=== PATIENT | female | born 1990 | race American Indian/Alaskan Native ===

== ENCOUNTER 2018-11-28 08:14 | Emergency (ER) | payer BC ==
[2018-11-28 08:54] VITALS: BP 115/68
[2018-11-28] MEDS ORDERED: BOOSTRIX IM ONE (09:19)
--- NOTE | 2018-11-28 09:22 | Emergency Department Report ---
ED Laceration HPI - HPI Chief Complaint: Laceration/Recheck/Suture Stated Complaint: CUTT ON L FINGER Time Seen by Provider: 11/28/18 09:08 Occurred When: Today Location: Upper Extremity Severity: moderate Tetanus Status: Not up to Date Laceration Symptoms: Yes Pain, No Foreign Body Sensation, No Numbness, No Weakness Other History: This is a 28 year-old female who presents with a laceration to left second finger. Patient states she was taken for breakfast this morning and accidentally cut finger about 2 hours ago. She is unsure of last tetanus vaccine. Patient states she was unable to control bleeding and came in for further evaluation. She denies numbness or tingling, swelling, weakness, or paresthesias. ED Review of Systems ROS: Stated complaint: CUTT ON L FINGER Other details as noted in HPI Constitutional: denies: chills, fever Respiratory: denies: cough, shortness of breath, wheezing Cardiovascular: denies: chest pain, palpitations Skin: lesions (laceration of second phalanx). denies: rash Neurological: denies: headache, weakness, paresthesias Psychiatric: denies: anxiety, depression ED Past Medical Hx - Past Medical History Previous Medical History?: No Hx Hypertension: No Hx Diabetes: No Hx Deep Vein Thrombosis: No Hx Renal Disease: No Hx Sickle Cell Disease: No Hx Seizures: No Hx Asthma: No Hx HIV: No - Surgical History Past Surgical History?: No - Social History Smoking Status: Never Smoker Substance Use Type: Alcohol - Medications Home Medications: Home Medications Medication Instructions Recorded Confirmed Last Taken Type Vit No.126/Iron/Folic 1 tab PO QDAY 09/12/14 09/12/14 09/10/14 08:00 History [Classic Tablet] one Naproxen [Naprosyn] 500 mg PO TID PRN #12 tablet 11/28/18 Unknown Rx Laceration Physical Exam - Exam General: Vital signs noted. No distress. Alert and acting appropriately. Wound Length (cm): 2 Laceration Location: Upper Extremity (2 cm laceration into the dermis of second proximal phalanx, bloody drainage, tenderness, no swelling or surrounding cellulitis, full range of motion, and neurologically intact) Laceration Exam: Yes Normal Distal CMS, No Foreign Body, No Exposed Tendon, Vessel, or Nerve, No Tendon Injury ED Course Vital Signs 11/28/18 08:50 Temperature 98.4 F Pulse Rate 70 Respiratory 16 Rate Blood Pressure 115/68 O2 Sat by Pulse 95 Oximetry - Laceration /Wound Repair Left Anterior Proximal Palm Finger Wound Location: upper extremity Wound Length (cm): 2 Wound's Depth, Shape: into muscle, linear Wound Explored: clean Irrigated w/ Saline (ccs): 5 Betadine Prep?: Yes Anesthesia: 1% Lidocaine Volume Anesthetic (ccs): 2 Wound Repaired With: sutures Suture Size/Type: 4:0 Number of Sutures: 2 Layer Closure?: No Sterile Dressing Applied?: Yes ED Medical Decision Making - Medical Decision Making This is a 28 y.o. female presents with laceration to proximal left 2nd digit since this morning. Patient examined by me. Patient is non-toxic appearing and stable. No signs of cellulitis surrounding the laceration. Laceration closed with 2 sutures, review procedure note. Patient given boosterix 0.5 mL IM. Start naproxen 500 mg by mouth 3 times a day when necessary for pain. Discharged home stable. Discussed suture care and given instructions. Patient agreed with plan. F/U with PCP. Critical care attestation.: If time is entered above; I have spent that time in minutes in the direct care of this critically ill patient, excluding procedure time. ED Disposition Clinical Impression: Laceration of finger of left hand Qualifiers: Encounter type: initial encounter Finger: index finger Damage to nail status: without damage Foreign body presence: without foreign body Qualified Code(s): S61.211A - Laceration without foreign body of left index finger without damage to nail, initial encounter Disposition: TO HOME OR SELFCARE Is pt being admited?: No Does the pt Need Aspirin: No Condition: Stable Instructions: Suture Care (ED), Laceration (ED) Additional Instructions: Keep wound dry and clean for 48 hours. Avoid putting to much tension on wound site. Prop arm up on pillows to decrease swelling. Follow up with Primary Care Provider in 2-3 days. Have sutures removed in 7-10 days by primary care provider or in ER. Return to ER if red, swollen, foul discharge, or fever. Prescriptions: Naproxen [Naprosyn] 500 mg PO TID PRN #12 tablet PRN Reason: Pain , Severe (7-10) Referrals: JESSICA QUACH MD [Referring] - 3-5 Days TANIA JOHNSON MD [Staff Physician] - 3-5 Days [facility] [place] [Outside] - 3-5 Days Forms: Work/School Release Form(ED) Time of Disposition: 10:15
== END 2018-11-28 11:08 | disposition home or self-care (01) ==
LOC: ED 08:14
DX: S61.211A Laceration without foreign body of left index finger without damage to nail, initial encounter (principal); W45.8XXA Other foreign body or object entering through skin, initial encounter; Y93.89 Activity, other specified; Y92.89 Other specified places as the place of occurrence of the external cause; Y99.8 Other external cause status
CPT/HCPCS: 90471; 90715

== ENCOUNTER 2019-05-12 03:04 | Emergency (ER) | payer BC ==
[2019-05-12 03:54] LABS: Basophils % (Auto) 0.2 % (0.0-1.8); Eosinophils % (Auto) 0.1 % (0.0-4.3); Hematocrit 35.3 % (30.3-42.9); Hemoglobin 12.3 gm/dl (10.1-14.3); Lymphocytes # (Auto) 0.7 K/mm3 (1.2-5.4); Lymphocytes % (Auto) 12.8 % (13.4-35.0); Mean Corpuscular HGB Conc 35 % (30-34); Mean Corpuscular Volume 82 fl (79-97); Monocytes # (Auto) 0.4 K/mm3 (0.0-0.8); Monocytes % (Auto) 6.6 % (0.0-7.3); Platelet Count 234 K/mm3 (140-440); Red Blood Count 4.29 M/mm3 (3.65-5.03); Red Cell Distribution Width 15.2 % (13.2-15.2)
[2019-05-12 04:52] LABS: Alanine Aminotransferase 9 units/L (7-56); Albumin 3.9 g/dL (3.9-5); BUN/Creatinine Ratio 8; Blood Urea Nitrogen 4 mg/dL (7-17); Calcium 9.3 mg/dL (8.4-10.2); Hemolysis Index 2
[2019-05-12] MEDS ORDERED: ZOFRAN IV ONE (07:40)
[2019-05-12] MEDS ORDERED: NACL 0.9% 1000 ML 1,000 ML IV ONE (07:40)
--- NOTE | 2019-05-12 07:44 | Emergency Department Report ---
Vomiting/Diarrhea - HPI Chief Complaint: Nausea/Vomiting/Diarrhea Stated Complaint: NV, CHEST PAIN, MILD SHAKING Time Seen by Provider: 05/12/19 07:22 Duration: 2 Days Severity: mild Nausea/Vomiting Severity: Mild Diarrhea Severity: None Pain Location: Other (no pain) Pain Severity: None (No) Symptoms: No Watery Diarrhea, No Bloody diarrhea, No Fever, No Able to Tolerate Fluids, No Recent Unusual Foods, No Recent Untreated Water, No Recent use of Antibiotics, No Family w/ Similar Symptoms, No Contacts w/ Similar Symptoms, No Rash, No Hematuria, No Recent URI Symptoms Other History: This is a 28-year-old female approximately the 15 weeks who presents to ED complaining of nausea vomiting that worsened yesterday. Patient states she had some Yi for the night. Patient states she is [employer] where she gets care in [facility]. She denies abdominal pain, vaginal bleeding, diarrhea. She said last menstrual period was 02/03/2019 ED Review of Systems ROS: Stated complaint: NV, CHEST PAIN, MILD SHAKING Other details as noted in HPI Comment: All other systems reviewed and negative ED Past Medical Hx - Past Medical History Hx Hypertension: No Hx Diabetes: No Hx Deep Vein Thrombosis: No Hx Renal Disease: No Hx Sickle Cell Disease: No Hx Seizures: No Hx Asthma: No Hx HIV: No - Surgical History Past Surgical History?: No - Social History Smoking Status: Never Smoker - Medications Home Medications: Home Medications Medication Instructions Recorded Confirmed Last Taken Type Vit No.126/Iron/Folic 1 tab PO QDAY 09/12/14 09/12/14 09/10/14 08:00 History [Classic Tablet] one Naproxen [Naprosyn] 500 mg PO TID PRN #12 tablet 11/28/18 Unknown Rx Doxylamine Succinate/Vit B6 2 tab PO QHS #40 tablet. 05/12/19 Unknown Rx [Chacorta Gallardo 10-10 mg Tablet] Vomiting Diarrhea Exam - Exam General: Vital signs noted. No distress. Alert and acting appropriately. HEENT: Yes Moist Mucous Membranes, No Pharyngeal Erythema, No Pharyngeal Exudates, No Rhinorrhea, No Conjuctival Injection, No Frontal Tenderness, No Maxillary Tenderness Neck: No Adenopathy, No Rigidity Lungs: Yes Clear Lung Sounds, Yes Good Air Exchange, No Wheezes, No Stridor, No Cough, No Nasal Flaring, No Retractions, No Use of Accessory Muscles Heart exam: Regular: Yes, Murmur: No, Tachycardia: No Abdomen: Tenderness: No, Peritoneal Signs: No, Distention: No, Hyperactive Bowel sounds: No Skin exam: Rash: No, Edema: No, Normal turgor: Yes Neurologic: Alert and oriented, no deficits. Musculoskeletal: Unremarkable. ED Course Vital Signs 05/12/19 03:13 Temperature 97.7 F Pulse Rate 101 H Respiratory 18 Rate Blood Pressure 133/86 O2 Sat by Pulse 95 Oximetry ED Medical Decision Making - Lab Data Result diagrams: 05/12/19 03:37 05/12/19 03:37 Laboratory Last Values WBC 5.8 K/mm3 (4.5-11.0) 05/12/19 03:37 RBC 4.29 M/mm3 (3.65-5.03) 05/12/19 03:37 Hgb 12.3 gm/dl (10.1-14.3) 05/12/19 03:37 Hct 35.3 % (30.3-42.9) 05/12/19 03:37 MCV 82 fl (79-97) 05/12/19 03:37 MCH 29 pg (28-32) 05/12/19 03:37 MCHC 35 % (30-34) H 05/12/19 03:37 RDW 15.2 % (13.2-15.2) 05/12/19 03:37 Plt Count 234 K/mm3 (140-440) 05/12/19 03:37 Lymph % (Auto) 12.8 % (13.4-35.0) L 05/12/19 03:37 [place] % (Auto) 6.6 % (0.0-7.3) 05/12/19 03:37 Eos % (Auto) 0.1 % (0.0-4.3) 05/12/19 03:37 Baso % (Auto) 0.2 % (0.0-1.8) 05/12/19 03:37 Lymph # 0.7 K/mm3 (1.2-5.4) L 05/12/19 03:37 [place] # 0.4 K/mm3 (0.0-0.8) 05/12/19 03:37 Eos # 0.0 K/mm3 (0.0-0.4) 05/12/19 03:37 Baso # 0.0 K/mm3 (0.0-0.1) 05/12/19 03:37 Seg Neutrophils % 80.3 % (40.0-70.0) H 05/12/19 03:37 Seg Neutrophils # 4.7 K/mm3 (1.8-7.7) 05/12/19 03:37 Sodium 133 mmol/L (137-145) L 05/12/19 03:37 Potassium 4.0 mmol/L (3.6-5.0) 05/12/19 03:37 Chloride 96.3 mmol/L (98-107) L 05/12/19 03:37 Carbon Dioxide 23 mmol/L (22-30) 05/12/19 03:37 18 mmol/L 05/12/19 03:37 BUN 4 mg/dL (7-17) L 05/12/19 03:37 0.5 mg/dL (0.7-1.2) L 05/12/19 03:37 Estimated GFR > 60 ml/min 05/12/19 03:37 8 % 05/12/19 03:37 Glucose 87 mg/dL (65-100) 05/12/19 03:37 Calcium 9.3 mg/dL (8.4-10.2) 05/12/19 03:37 0.40 mg/dL (0.1-1.2) 05/12/19 03:37 AST 11 units/L (5-40) 05/12/19 03:37 ALT 9 units/L (7-56) 05/12/19 03:37 70 units/L (35-129) 05/12/19 03:37 8.3 g/dL (6.3-8.2) H 05/12/19 03:37 3.9 g/dL (3.9-5) 05/12/19 03:37 0.9 % 05/12/19 03:37 HCG, Quant 97175 mIU/mL (0-4) H 05/12/19 03:37 - Medical Decision Making 28-year-old female who presents for nausea and vomiting in All labs are within normal limits. Patient received 1 L of fluids and Zofran ODT. Patient reports feeling much better. CBC within normal limits BMP shows mild dehydration. Discussed with the patient to follow up with her [employer] in 2-3 days. Patient agrees and states that she will follow up. Vital signs are normal she had no acute or respiratory distress. Critical care attestation.: If time is entered above; I have spent that time in minutes in the direct care of this critically ill patient, excluding procedure time. ED Disposition Clinical Impression: Nausea and vomiting during Disposition: TO HOME OR SELFCARE Is pt being admited?: No Does the pt Need Aspirin: No Condition: Stable Instructions: Morning Sickness (ED), (ED) Additional Instructions: Make sure to follow up with the [employer] as discussed. Take all your medications as you've been prescribed. If you have any worsening symptoms or develop new symptoms please return to ED immediately. Prescriptions: Doxylamine Succinate/Vit B6 [Chacorta Gallardo 10-10 mg Tablet] 2 tab PO QHS #40 tablet. Referrals: ERICA [place] MD KAELYN [Primary Care Provider] - 3-5 Days Forms: Work/School Release Form(ED) Time of Disposition: 08:31
[2019-05-12 09:02] VITALS: BP 109/63
== END 2019-05-12 09:03 | disposition home or self-care (01) ==
LOC: ED 03:04
DX: O21.9 Vomiting of pregnancy, unspecified (principal); Z3A.15 15 weeks gestation of pregnancy
CPT/HCPCS: 36415; 80053; 84702; 85025; 93005; 93010; 96374; 99284; J2405; J7030

== ENCOUNTER 2019-06-25 08:57 | Emergency (ER) | payer BC ==
[2019-06-25 09:05] VITALS: BP 133/69
[2019-06-25] MEDS ORDERED: SODIUM CHLORIDE 0.9% 1000 ML 1,000 ML IV ONE (09:25)
[2019-06-25] MEDS ORDERED: DICYCLOMINE 20 MG/2 ML INJ IM ONE (09:25)
[2019-06-25] MEDS ORDERED: ONDANSETRON 4 MG/2 ML INJ IV ONE (09:25)
[2019-06-25] MEDS ORDERED: FAMOTIDINE 20 MG/2 ML INJ IV ONE (09:25)
[2019-06-25 09:33] LABS: Basophils % (Auto) 0.4 % (0.0-1.8); Eosinophils % (Auto) 0.5 % (0.0-4.3); Hematocrit 34.1 % (30.3-42.9); Hemoglobin 11.7 gm/dl (10.1-14.3); Mean Corpuscular HGB Conc 34 % (30-34); Mean Corpuscular Volume 84 fl (79-97); Monocytes # (Auto) 0.4 K/mm3 (0.0-0.8); Monocytes % (Auto) 6.2 % (0.0-7.3); Platelet Count 232 K/mm3 (140-440); Red Blood Count 4.06 M/mm3 (3.65-5.03); Red Cell Distribution Width 14.9 % (13.2-15.2)
[2019-06-25 09:46] LABS: Alanine Aminotransferase 11 units/L (7-56); Albumin 3.8 g/dL (3.9-5); BUN/Creatinine Ratio 10; Blood Urea Nitrogen 4 mg/dL (7-17); Calcium 9.1 mg/dL (8.4-10.2); Hemolysis Index 0
--- NOTE | 2019-06-25 10:02 | Emergency Department Report ---
ED N/V/D HPI - General Chief complaint: Nausea/Vomiting/Diarrhea Stated complaint: MIRGAINE/WEAK/SORE THROAT Time Seen by Provider: 06/25/19 09:20 Source: patient Mode of arrival: Ambulatory Limitations: No Limitations - History of Present Illness Initial comments: Pt is 21 weeks MD complaint: nausea, vomiting, abdominal pain -: days(s) (3) Description of Vomiting: food contents, watery Associated Abdominal Pain: Yes Location: diffuse Radiation: none Severity: mild Pain Scale: 4 Quality: cramping, aching Consistency: constant Improves with: none Worsens with: eating, other (drinking) Associated Symptoms: nausea/vomiting. denies: myalgias, chest pain, cough, diaphoresis, fever/chills, headaches, loss of appetite, malaise, rash, dysuria, shortness of breath, syncope, weakness - Related Data Home Medications Medication Instructions Recorded Confirmed Last Taken Vit No.126/Iron/Folic 1 tab PO QDAY 09/12/14 09/12/14 09/10/14 08:00 [Classic Tablet] one Previous Rx's Medication Instructions Recorded Last Taken Type Naproxen [Naprosyn] 500 mg PO TID PRN #12 tablet 11/28/18 Unknown Rx Doxylamine Succinate/Vit B6 2 tab PO QHS #40 tablet. 05/12/19 Unknown Rx [Chacorta Gallardo 10-10 mg Tablet] Metoclopramide [Reglan] 10 mg PO TID PRN #12 tab 06/25/19 Unknown Rx Nitrofurantoin [place]/M-Cryst 100 mg PO Q12HR #14 capsule 06/25/19 Unknown Rx [Macrobid CAP] Allergies Allergy/AdvReac Type Severity Reaction Status Date / Time No Known Allergies Allergy Unverified 09/11/14 23:20 ED Review of Systems ROS: Stated complaint: MIRGAINE/WEAK/SORE THROAT Other details as noted in HPI Comment: All other systems reviewed and negative ED Past Medical Hx - Past Medical History Hx Hypertension: No Hx Diabetes: No Hx Deep Vein Thrombosis: No Hx Renal Disease: No Hx Sickle Cell Disease: No Hx Seizures: No Hx Asthma: No Hx HIV: No - Surgical History Past Surgical History?: No - Social History Smoking Status: Never Smoker - Medications Home Medications: Home Medications Medication Instructions Recorded Confirmed Last Taken Type Vit No.126/Iron/Folic 1 tab PO QDAY 09/12/14 09/12/14 09/10/14 08:00 History [Classic Tablet] one Naproxen [Naprosyn] 500 mg PO TID PRN #12 tablet 11/28/18 Unknown Rx Doxylamine Succinate/Vit B6 2 tab PO QHS #40 tablet. 05/12/19 Unknown Rx [Diclegis Dr 10-10 mg Tablet] Metoclopramide [Reglan] 10 mg PO TID PRN #12 tab 06/25/19 Unknown Rx Nitrofurantoin [place]/M-Cryst 100 mg PO Q12HR #14 capsule 06/25/19 Unknown Rx [Macrobid CAP] ED Physical Exam - General Limitations: No Limitations General appearance: alert, in no apparent distress - Head Head exam: Present: atraumatic, normocephalic - Eye Eye exam: Present: normal appearance, PERRL, EOMI - ENT ENT exam: Present: mucous membranes moist - Neck Neck exam: Present: normal inspection - Respiratory Respiratory exam: Present: normal lung sounds bilaterally. Absent: respiratory distress, wheezes, rales, rhonchi, stridor - Cardiovascular Cardiovascular Exam: Present: regular rate, normal rhythm, normal heart sounds. Absent: systolic murmur, diastolic murmur, rubs, gallop - GI/Abdominal GI/Abdominal exam: Present: soft, normal bowel sounds. Absent: distended, tenderness, guarding, rebound, rigid - Extremities Exam Extremities exam: Present: normal inspection - Back Exam Back exam: Present: normal inspection - Neurological Exam Neurological exam: Present: alert, oriented X3 - Psychiatric Psychiatric exam: Present: normal affect, normal mood - Skin Skin exam: Present: warm, dry, intact, normal color. Absent: rash ED Course Vital Signs 06/25/19 06/25/19 09:00 09:35 Temperature 98.3 F Pulse Rate 78 Respiratory 14 17 Rate Blood Pressure 133/69 [Left] O2 Sat by Pulse 98 Oximetry ED Medical Decision Making - Lab Data Result diagrams: 06/25/19 09:19 06/25/19 09:19 Lab Results 06/25/19 06/25/19 Range/Units 09:19 09:19 WBC 5.8 (4.5-11.0) K/mm3 RBC 4.06 (3.65-5.03) M/mm3 Hgb 11.7 (10.1-14.3) gm/dl Hct 34.1 (30.3-42.9) % MCV 84 (79-97) fl MCH 29 (28-32) pg MCHC 34 (30-34) % RDW 14.9 (13.2-15.2) % Plt Count 232 (140-440) K/mm3 Lymph % (Auto) 18.0 (13.4-35.0) % [place] % (Auto) 6.2 (0.0-7.3) % Eos % (Auto) 0.5 (0.0-4.3) % Baso % (Auto) 0.4 (0.0-1.8) % Lymph # 1.0 L (1.2-5.4) K/mm3 [place] # 0.4 (0.0-0.8) K/mm3 Eos # 0.0 (0.0-0.4) K/mm3 Baso # 0.0 (0.0-0.1) K/mm3 Seg Neutrophils % 74.9 H (40.0-70.0) % Seg Neutrophils # 4.4 (1.8-7.7) K/mm3 Sodium 135 L (137-145) mmol/L Potassium 3.8 (3.6-5.0) mmol/L Chloride 98.7 (98-107) mmol/L Carbon Dioxide 21 L (22-30) mmol/L Anion Gap 19 mmol/L BUN 4 L (7-17) mg/dL Creatinine 0.4 L (0.7-1.2) mg/dL Estimated GFR > 60 ml/min BUN/Creatinine Ratio 10 % Glucose 81 (65-100) mg/dL Calcium 9.1 (8.4-10.2) mg/dL Total Bilirubin 0.60 (0.1-1.2) mg/dL AST 17 (5-40) units/L ALT 11 (7-56) units/L Alkaline Phosphatase 92 (35-129) units/L Total Protein 8.0 (6.3-8.2) g/dL Albumin 3.8 L (3.9-5) g/dL Albumin/Globulin Ratio 0.9 % Lab Results 06/25/19 06/25/19 06/25/19 Range/Units 09:19 09:19 Unknown WBC 5.8 (4.5-11.0) K/mm3 RBC 4.06 (3.65-5.03) M/mm3 Hgb 11.7 (10.1-14.3) gm/dl Hct 34.1 (30.3-42.9) % MCV 84 (79-97) fl MCH 29 (28-32) pg MCHC 34 (30-34) % RDW 14.9 (13.2-15.2) % Plt Count 232 (140-440) K/mm3 Lymph % (Auto) 18.0 (13.4-35.0) % [place] % (Auto) 6.2 (0.0-7.3) % Eos % (Auto) 0.5 (0.0-4.3) % Baso % (Auto) 0.4 (0.0-1.8) % Lymph # 1.0 L (1.2-5.4) K/mm3 [place] # 0.4 (0.0-0.8) K/mm3 Eos # 0.0 (0.0-0.4) K/mm3 Baso # 0.0 (0.0-0.1) K/mm3 Seg Neutrophils % 74.9 H (40.0-70.0) % Seg Neutrophils # 4.4 (1.8-7.7) K/mm3 Sodium 135 L (137-145) mmol/L Potassium 3.8 (3.6-5.0) mmol/L Chloride 98.7 (98-107) mmol/L Carbon Dioxide 21 L (22-30) mmol/L Anion Gap 19 mmol/L BUN 4 L (7-17) mg/dL Creatinine 0.4 L (0.7-1.2) mg/dL Estimated GFR > 60 ml/min BUN/Creatinine Ratio 10 % Glucose 81 (65-100) mg/dL Calcium 9.1 (8.4-10.2) mg/dL Total Bilirubin 0.60 (0.1-1.2) mg/dL AST 17 (5-40) units/L ALT 11 (7-56) units/L Alkaline Phosphatase 92 (35-129) units/L Total Protein 8.0 (6.3-8.2) g/dL Albumin 3.8 L (3.9-5) g/dL Albumin/Globulin Ratio 0.9 % Urine Color [place] (Yellow) Urine Turbidity Cloudy (Clear) Urine pH 6.0 (5.0-7.0) Ur Specific [place] 1.031 H (1.003-1.030) Urine Protein 100 mg/dl (Negative) mg/dL Urine Glucose (UA) Neg (Negative) mg/dL Urine Ketones 80 (Negative) mg/dL Urine Blood Neg (Negative) Urine Nitrite Neg (Negative) Ur Reducing Substances Not Reportable Urine Bilirubin Sm (Negative) Urine Ictotest Positive (Negative) Urine Urobilinogen 4.0 (<2.0) mg/dL Ur Leukocyte Esterase Mod (Negative) Urine WBC (Auto) 37.0 H (0.0-6.0) /HPF Urine RBC (Auto) 10.0 (0.0-6.0) /HPF U Epithel Cells (Auto) 67.0 H (0-13.0) /HPF Urine Bacteria (Auto) 1+ (Negative) /HPF Urine Mucus 3+ /HPF Urine HCG, Qual Positive A (Negative) - Medical Decision Making Patient was hydrated and given antiemetics. Patient did have a large amount of ketones in the urine area was her second liter fluid had D5 added to help clear her ketones. Patient is feeling better and had no further incidences of nausea vomiting here in the emergency department. Patient be discharged home. Critical care attestation.: If time is entered above; I have spent that time in minutes in the direct care of this critically ill patient, excluding procedure time. ED Disposition Clinical Impression: Moderate dehydration, Ketonuria, UTI in Acute gastritis Qualifiers: Gastritis type: unspecified gastritis Gastritis bleeding: without bleeding Qualified Code(s): K29.00 - Acute gastritis without bleeding Nausea and vomiting Qualifiers: Vomiting type: unspecified Vomiting Intractability: non-intractable Qualified Code(s): R11.2 - Nausea with vomiting, unspecified Disposition: DC-01 TO HOME OR SELFCARE Is pt being admited?: No Does the pt Need Aspirin: No Condition: Stable Instructions: Acute Nausea and Vomiting (ED), Urinary Tract Infection in Women (ED) Referrals: PRIMARY CARE, [Referring] - 3-5 Days Time of Disposition: 12:09
[2019-06-25 10:59] LABS: HCG Qualitative,Urine Positive (Negative)
[2019-06-25 11:04] LABS: Bacteria,Urine 1+ /HPF (Negative); Bilirubin,Urine SM (Negative); Blood,Urine NEG (Negative); Color,Urine Amber (Yellow); Mucus,Urine 3+ /HPF
[2019-06-25 11:18] LABS: Ictotest,Urine Positive (Negative)
[2019-06-25] MEDS ORDERED: D5W/0.9% NACL 1,000 ML IV SCH (12:00)
== END 2019-06-25 12:54 | disposition home or self-care (01) ==
LOC: ED 08:57
DX: O26.892 Other specified pregnancy related conditions, second trimester (principal); O99.612 Diseases of the digestive system complicating pregnancy, second trimester; K92.89 Other specified diseases of the digestive system; O23.42 Unspecified infection of urinary tract in pregnancy, second trimester; O99.282 Endocrine, nutritional and metabolic diseases complicating pregnancy, second trimester; E86.0 Dehydration; Z3A.21 21 weeks gestation of pregnancy
CPT/HCPCS: 36415; 80053; 81001; 81025; 85025; 87086; 96361; 96372; 96374; 96375; 99283; J0500; J2405; J7030; J7042

== ENCOUNTER 2019-09-01 17:25 | Outpatient (CLI) | payer BC, OTHER ==
[2019-09-01] MEDS ORDERED: LACTATED RINGERS 1,000 ML IV SCH (20:00)
[2019-09-01] MEDS ORDERED: ONDANSETRON 4 MG/2 ML INJ IV PRN (22:07)
[2019-09-01] MEDS ORDERED: D5W/LACTATED RINGERS 1,000 ML IV SCH ×2 (23:00)
[2019-09-01 23:06] LABS: Basophils % (Auto) 0.5 % (0.0-1.8); Eosinophils % (Auto) 0.1 % (0.0-4.3); Hemoglobin 11.5 gm/dl (10.1-14.3); Mean Corpuscular HGB Conc 33 % (30-34); Mean Corpuscular Volume 84 fl (79-97); Monocytes # (Auto) 0.5 K/mm3 (0.0-0.8); Monocytes % (Auto) 6.1 % (0.0-7.3); Platelet Count 257 K/mm3 (140-440); Red Blood Count 4.15 M/mm3 (3.65-5.03); Red Cell Distribution Width 14.6 % (13.2-15.2)
[2019-09-01 23:11] LABS: Bacteria,Urine 1+ /HPF (Negative); Bilirubin,Urine NEG (Negative); Blood,Urine NEG (Negative); Color,Urine Yellow (Yellow); Mucus,Urine FEW /HPF
[2019-09-01 23:22] LABS: Amphetamine Screen,Urine PRESUMPTIVE NEGATIVE; Benzodiazepines Screen,Urine PRESUMPTIVE NEGATIVE; Cannabinoid Screen,Urine PRESUMPTIVE NEGATIVE; Cocaine Screen,Urine PRESUMPTIVE NEGATIVE; Methadone Screen,Urine PRESUMPTIVE NEGATIVE; Opiate Screen,Urine PRESUMPTIVE NEGATIVE
[2019-09-01 23:31] LABS: Alanine Aminotransferase 8 units/L (7-56); Albumin 3.4 g/dL (3.9-5); BUN/Creatinine Ratio 10; Blood Urea Nitrogen 4 mg/dL (7-17); Calcium 9.1 mg/dL (8.4-10.2); Hemolysis Index 6
[2019-09-02 00:02] VITALS: BP 105/69
== END 2019-09-02 00:20 | disposition home or self-care (01) ==
LOC: TRG 17:25
PROVIDERS: ATTEND Obstetrics & Gynecology
DX: O21.2 Late vomiting of pregnancy (principal); O26.893 Other specified pregnancy related conditions, third trimester; R10.2 Pelvic and perineal pain; R10.30 Lower abdominal pain, unspecified; O47.03 False labor before 37 completed weeks of gestation, third trimester; Z3A.30 30 weeks gestation of pregnancy
CPT/HCPCS: 36415; 59025; 80053; 80307; 81001; 84443; 85025; 87086; 96360; 96361; J7120; J7121; 96372; 96374; J2405

== ENCOUNTER 2019-09-03 12:04 | Outpatient (CLI) | payer BC, OTHER ==
[2019-09-03] MEDS ORDERED: BETAMET ACET/BETAMET NA PH 6 MG/ML INJ 5 ML MDV IM SCH (13:00)
== END 2019-09-03 13:17 | disposition home or self-care (01) ==
LOC: TRG 12:04
PROVIDERS: ATTEND Obstetrics & Gynecology
DX: O47.03 False labor before 37 completed weeks of gestation, third trimester (principal); Z3A.31 31 weeks gestation of pregnancy
CPT/HCPCS: 96372; J0702

== ENCOUNTER 2019-09-04 12:52 | Outpatient (CLI) | payer BC, OTHER ==
[2019-09-04 13:11] VITALS: BP 108/68
[2019-09-04] MEDS ORDERED: BETAMET ACET/BETAMET NA PH 6 MG/ML INJ 5 ML MDV IM ONE ×2 (13:38→13:48)
== END 2019-09-04 14:06 | disposition home or self-care (01) ==
LOC: TRG 12:52
PROVIDERS: ATTEND Obstetrics & Gynecology
DX: O47.03 False labor before 37 completed weeks of gestation, third trimester (principal); Z3A.31 31 weeks gestation of pregnancy
CPT/HCPCS: J0702

== ENCOUNTER 2019-09-08 01:00 | Outpatient (CLI) | payer BC, OTHER ==
[2019-09-08 01:21] VITALS: BP 114/66
[2019-09-08] MEDS ORDERED: LACTATED RINGERS 1,000 ML IV ONE (02:21)
[2019-09-08] MEDS ORDERED: TERBUTALINE 1 MG/1 ML INJ SUB-Q SCH ×2 (04:21→05:00)
[2019-09-08 07:41] LABS: Bilirubin,Urine NEG (Negative); Color,Urine Yellow (Yellow)
[2019-09-08 07:42] LABS: Blood,Urine NEG (Negative); Protein,Urine <15 mg/dL mg/dL (Negative); Urobilinogen,Urine < 2.0 mg/dL (<2.0)
[2019-09-08 07:44] LABS: Mucus,Urine Few /HPF
== END 2019-09-08 08:50 | disposition home or self-care (01) ==
LOC: TRG 01:00
PROVIDERS: ATTEND Obstetrics & Gynecology
DX: O62.9 Abnormality of forces of labor, unspecified (principal); Z3A.31 31 weeks gestation of pregnancy
CPT/HCPCS: 81001; 96360; 96372; J3105; J7120

== ENCOUNTER 2019-09-19 03:44 | Outpatient (CLI) | payer BC, OTHER ==
[2019-09-19] MEDS ORDERED: LACTATED RINGERS 1,000 ML ONE (05:29)
[2019-09-19 05:37] VITALS: BP 120/69
[2019-09-19] MEDS ORDERED: LACTATED RINGERS 1,000 ML IV ONE (06:36)
[2019-09-19 08:28] LABS: Bacteria,Urine 1+ /HPF (Negative); Bilirubin,Urine NEG (Negative); Blood,Urine NEG (Negative); Color,Urine Amber (Yellow); Mucus,Urine 3+ /HPF; Urobilinogen,Urine < 2.0 mg/dL (<2.0)
[2019-09-19] MEDS ORDERED: ONDANSETRON 4 MG ODT TAB PO PRN (10:33)
== END 2019-09-19 10:48 | disposition home or self-care (01) ==
LOC: TRG 03:44
PROVIDERS: ATTEND Obstetrics & Gynecology
DX: O62.9 Abnormality of forces of labor, unspecified (principal); O21.2 Late vomiting of pregnancy; Z3A.33 33 weeks gestation of pregnancy; O26.893 Other specified pregnancy related conditions, third trimester; R20.0 Anesthesia of skin
CPT/HCPCS: 81001; 87086; J7120; 96360; Q0162

== ENCOUNTER 2019-10-01 21:27 | Outpatient (CLI) | payer BC, OTHER ==
[2019-10-01] MEDS ORDERED: LACTATED RINGERS 1,000 ML IV ONE (22:14)
[2019-10-01 23:37] LABS: Bilirubin,Urine NEG (Negative); Blood,Urine NEG (Negative); Color,Urine Amber (Yellow); Mucus,Urine FEW /HPF; Urobilinogen,Urine < 2.0 mg/dL (<2.0)
[2019-10-02] MEDS ORDERED: ONDANSETRON 4 MG ODT TAB PO PRN (01:05)
[2019-10-02 01:08] VITALS: BP 137/89
== END 2019-10-02 01:21 | disposition home or self-care (01) ==
LOC: TRG 21:27
PROVIDERS: ATTEND Obstetrics & Gynecology
DX: O21.2 Late vomiting of pregnancy (principal); O26.893 Other specified pregnancy related conditions, third trimester; M54.5 Low back pain; R10.2 Pelvic and perineal pain; R51 Headache; O47.02 False labor before 37 completed weeks of gestation, second trimester; Z3A.35 35 weeks gestation of pregnancy
CPT/HCPCS: 59025; 81001; 96360; J7120

== ENCOUNTER 2019-10-03 19:57 | Emergency (ER) | payer BC, OTHER ==
[2019-10-03 15:38] LABS: Basophils % (Auto) 0.6 % (0.0-1.8); Eosinophils % (Auto) 0.2 % (0.0-4.3); Hematocrit 33.8 % (30.3-42.9); Lymphocytes # (Auto) 1.2 K/mm3 (1.2-5.4); Lymphocytes % (Auto) 24.6 % (13.4-35.0); Mean Corpuscular HGB Conc 33 % (30-34); Mean Corpuscular Volume 80 fl (79-97); Monocytes # (Auto) 0.5 K/mm3 (0.0-0.8); Monocytes % (Auto) 9.4 % (0.0-7.3); Platelet Count 291 K/mm3 (140-440); Red Cell Distribution Width 15.7 % (13.2-15.2)
[2019-10-03 16:00] LABS: Alanine Aminotransferase 13 units/L (7-56); Albumin 3.5 g/dL (3.9-5); BUN/Creatinine Ratio 8; Blood Urea Nitrogen 4 mg/dL (7-17); Calcium 9.3 mg/dL (8.4-10.2); Hemolysis Index 4; Uric Acid 7.2 mg/dL (3.5-7.6)
[2019-10-03 17:02] LABS: Amphetamine Screen,Urine PRESUMPTIVE NEGATIVE; Benzodiazepines Screen,Urine PRESUMPTIVE NEGATIVE; Cannabinoid Screen,Urine PRESUMPTIVE NEGATIVE; Cocaine Screen,Urine PRESUMPTIVE NEGATIVE; Methadone Screen,Urine PRESUMPTIVE NEGATIVE; Opiate Screen,Urine PRESUMPTIVE NEGATIVE
[2019-10-03 17:06] LABS: Bilirubin,Urine MOD (Negative); Blood,Urine SM (Negative); Color,Urine Amber (Yellow); Mucus,Urine 3+ /HPF
[2019-10-03 17:12] LABS: Ictotest,Urine Positive (Negative)
--- NOTE | 2019-10-03 18:37 | Ultrasound Report ---
ULTRASOUND ABDOMEN, LIMITED (RIGHT UPPER QUADRANT) INDICATION / CLINICAL INFORMATION: Abdominal pain, vomiting. COMPARISON: None available. FINDINGS: PANCREAS: Visualized portion shows no significant abnormality. LIVER: No significant abnormality. GALLBLADDER: No significant abnormality. No gallstones or gallbladder wall thickening identified. BILE DUCTS: No significant abnormality. Common bile duct measures 3 mm. FREE FLUID: None. ADDITIONAL FINDINGS: None. IMPRESSION: 1. No significant sonographic abnormality of the right upper quadrant. Signer Name: Mar Martinez MD Signed: 10/03/2019 6:32 PM Workstation Name: [id number]
--- NOTE | 2019-10-03 18:55 | Ultrasound Report ---
ULTRASOUND OBSTETRIC LIMITED ULTRASOUND BIOPHYSICAL PROFILE INDICATION / CLINICAL INFORMATION: KAT, check placenta. COMPARISON: None available. FINDINGS: BREATHING MOVEMENT = 2 GROSS BODY MOVEMENT = 2 TONE = 2 QUALITATIVE AMNIOTIC FLUID VOLUME = 2 TOTAL BIOPHYSICAL SCORE = 8/8 AMNIOTIC FLUID INDEX (cm) = 10.4 PRESENTATION: Cephalic. HEART RATE (beats per minute): 144 ADDITIONAL FINDINGS: Placenta is located anteriorly with a grade of 2. No evidence of abruption. IMPRESSION: 1. Biophysical Score = 8/8 2. Single viable IUP in a cephalic presentation. 3. Placenta is located anteriorly with a grade of 2. Signer Name: Mar Martinez MD Signed: 10/03/2019 6:51 PM Workstation Name: [id number]
[~2019-10-03 19:57] MED LIST: LACTATED RINGERS 500 ML IV ONE
[2019-10-03] MEDS ORDERED: FAMOTIDINE 20 MG/2 ML INJ IV ONE ×2 (22:37→23:04)
[2019-10-03] MEDS ORDERED: METOCLOPRAMIDE 10 MG/2 ML INJ IV ONE (22:37)
[2019-10-03] MEDS ORDERED: D5W/0.9% NACL 1,000 ML IV SCH (23:00)
[2019-10-03] MEDS ORDERED: METOCLOPRAMIDE 10 MG/2 ML INJ ONE (23:04)
--- NOTE | 2019-10-03 23:18 | Emergency Department Report ---
ED N/V/D HPI - General Chief complaint: Nausea/Vomiting/Diarrhea Time Seen by Provider: 10/03/19 22:24 Source: patient Mode of arrival: Stretcher Limitations: No Limitations - History of Present Illness Initial comments: Patient is a 29-year-old Female who is 35 weeks who is complaining of 5 days of nausea and vomiting. Patient states after several days of nausea vomi ting patient is having some chest and upper abdominal pain as well. Patient states she has some achiness in the bilateral legs and arms. Patient states she has a mild cough that is nonproductive. She denies fever or sore throat headache or neck stiffness. Patient was seen at labor and delivery and was cleared for being in labor. Bilateral physical score for the fetus is 8 out of a. Heart rate 144. No evidence of abruption. - Related Data Home Medications Medication Instructions Recorded Confirmed Last Taken Vit No.126/Iron/Folic 1 tab PO QDAY 09/12/14 10/03/19 09/10/14 08:00 [Classic Tablet] one Previous Rx's Medication Instructions Recorded Last Taken Type Famotidine [Pepcid] 40 mg PO QHS #10 tablet 10/04/19 Unknown Rx Metoclopramide [Reglan] 10 mg PO TID PRN #12 tab 10/04/19 Unknown Rx Allergies Allergy/AdvReac Type Severity Reaction Status Date / Time No Known Allergies Allergy Verified 10/03/19 14:50 ED Review of Systems ROS: Stated complaint: Other details as noted in HPI Comment: All other systems reviewed and negative ED Past Medical Hx - Past Medical History Previous Medical History?: No Hx Hypertension: No Hx Diabetes: No Hx Deep Vein Thrombosis: No Hx Renal Disease: No Hx Sickle Cell Disease: No Hx Seizures: No Hx Asthma: No Hx HIV: No - Surgical History Past Surgical History?: No - Social History Smoking Status: Never Smoker Substance Use Type: None - Medications Home Medications: Home Medications Medication Instructions Recorded Confirmed Last Taken Type Vit No.126/Iron/Folic 1 tab PO QDAY 09/12/14 10/03/19 09/10/14 08:00 History [Classic Tablet] one Famotidine [Pepcid] 40 mg PO QHS #10 tablet 10/04/19 Unknown Rx Metoclopramide [Reglan] 10 mg PO TID PRN #12 tab 10/04/19 Unknown Rx ED Physical Exam - General Limitations: No Limitations General appearance: alert, in no apparent distress - Head Head exam: Present: atraumatic, normocephalic - Eye Eye exam: Present: normal appearance. Absent: PERRL, EOMI - ENT ENT exam: Present: mucous membranes moist - Neck Neck exam: Present: normal inspection - Respiratory Respiratory exam: Present: normal lung sounds bilaterally. Absent: respiratory distress, wheezes, rales, rhonchi - Cardiovascular Cardiovascular Exam: Present: regular rate, normal rhythm, normal heart sounds. Absent: systolic murmur, diastolic murmur, rubs, gallop - GI/Abdominal GI/Abdominal exam: Present: soft, distended (gravid uterus), normal bowel sounds. Absent: tenderness, guarding, rebound - Extremities Exam Extremities exam: Present: normal inspection - Back Exam Back exam: Present: normal inspection - Neurological Exam Neurological exam: Present: alert, oriented X3 - Psychiatric Psychiatric exam: Present: normal affect, normal mood - Skin Skin exam: Present: warm, dry, intact, normal color. Absent: rash ED Course Vital Signs 10/03/19 10/03/19 10/03/19 15:00 15:05 15:06 Temperature 98.5 F Pulse Rate 127 H 91 H Respiratory 18 Rate Blood Pressure Blood Pressure [Right] O2 Sat by Pulse 97 96 Oximetry 10/03/19 10/03/19 10/03/19 15:08 15:10 15:11 Temperature Pulse Rate 102 H 93 H 99 H Respiratory Rate Blood Pressure 130/84 Blood Pressure [Right] O2 Sat by Pulse 94 95 Oximetry 10/03/19 10/03/19 10/03/19 15:27 15:32 15:33 Temperature Pulse Rate 89 76 90 Respiratory Rate Blood Pressure 123/85 Blood Pressure [Right] O2 Sat by Pulse 96 95 Oximetry 10/03/19 10/03/19 10/03/19 15:37 15:42 15:47 Temperature Pulse Rate 85 74 85 Respiratory Rate Blood Pressure Blood Pressure [Right] O2 Sat by Pulse 96 97 97 Oximetry 10/03/19 10/03/19 10/03/19 15:48 15:52 15:57 Temperature Pulse Rate 72 78 73 Respiratory Rate Blood Pressure 116/75 Blood Pressure [Right] O2 Sat by Pulse 98 98 Oximetry 10/03/19 10/03/19 10/03/19 16:02 16:03 16:33 Temperature Pulse Rate 75 79 70 Respiratory Rate Blood Pressure 128/81 Blood Pressure [Right] O2 Sat by Pulse 99 97 Oximetry 10/03/19 10/03/19 10/03/19 16:38 16:43 16:48 Temperature Pulse Rate 73 73 72 Respiratory Rate Blood Pressure Blood Pressure [Right] O2 Sat by Pulse 96 96 96 Oximetry 10/03/19 10/03/19 10/03/19 16:53 16:58 17:03 Temperature Pulse Rate 70 71 68 Respiratory Rate Blood Pressure Blood Pressure [Right] O2 Sat by Pulse 95 95 96 Oximetry 10/03/19 10/03/19 10/03/19 17:08 17:13 17:18 Temperature Pulse Rate 74 77 74 Respiratory Rate Blood Pressure Blood Pressure [Right] O2 Sat by Pulse 95 94 94 Oximetry 10/03/19 10/03/19 10/03/19 17:20 17:23 17:28 Temperature Pulse Rate 70 86 71 Respiratory Rate Blood Pressure Blood Pressure [Right] O2 Sat by Pulse 93 95 97 Oximetry 10/03/19 10/03/19 10/03/19 17:33 18:54 18:59 Temperature Pulse Rate 71 73 87 Respiratory Rate Blood Pressure Blood Pressure [Right] O2 Sat by Pulse 97 96 97 Oximetry 10/03/19 10/03/19 10/03/19 19:04 19:09 19:13 Temperature Pulse Rate 71 72 75 Respiratory Rate Blood Pressure 107/61 Blood Pressure [Right] O2 Sat by Pulse 96 96 Oximetry 10/03/19 10/03/19 10/03/19 19:14 19:15 19:19 Temperature 98.3 F Pulse Rate 76 84 73 Respiratory 16 Rate Blood Pressure Blood Pressure 107/61 [Right] O2 Sat by Pulse 96 96 97 Oximetry 10/03/19 10/04/19 20:34 01:04 Temperature 98.6 F 98.4 F Pulse Rate 86 74 Respiratory 18 20 Rate Blood Pressure 132/85 Blood Pressure 128/80 [Right] O2 Sat by Pulse 98 98 Oximetry - Reevaluation(s) Reevaluation #1: 10/03/19 23:17 She has a significant amount of ketones in her urine. This is likely the cause of the patient's continued nausea and vomiting. Patient likely with a viral upper respiratory infection with some initial nausea vomiting which is now con tinue secondary to her ketosis. Patient given 2 L of D5 normal saline as well as antiemetics and Pepcid and the patient will be reassessed. Reevaluation #2: 10/04/19 02:11 After the first liter of D5 normal saline patient states she is feeling much improved. She's had no further nausea vomiting. She is resting comfortably. ED Medical Decision Making - Lab Data Result diagrams: 10/03/19 15:23 10/03/19 15:23 Lab Results 10/03/19 10/03/19 10/03/19 Range/Units 15:23 15:23 15:44 WBC 4.9 (4.5-11.0) K/mm3 RBC 4.20 (3.65-5.03) M/mm3 Hgb 11.0 (10.1-14.3) gm/dl Hct 33.8 (30.3-42.9) % MCV 80 (79-97) fl MCH 26 L (28-32) pg MCHC 33 (30-34) % RDW 15.7 H (13.2-15.2) % Plt Count 291 (140-440) K/mm3 Lymph % (Auto) 24.6 (13.4-35.0) % [place] % (Auto) 9.4 H (0.0-7.3) % Eos % (Auto) 0.2 (0.0-4.3) % Baso % (Auto) 0.6 (0.0-1.8) % Lymph # 1.2 (1.2-5.4) K/mm3 [place] # 0.5 (0.0-0.8) K/mm3 Eos # 0.0 (0.0-0.4) K/mm3 Baso # 0.0 (0.0-0.1) K/mm3 Seg Neutrophils % 65.2 (40.0-70.0) % Seg Neutrophils # 3.2 (1.8-7.7) K/mm3 Sodium 134 L (137-145) mmol/L Potassium 3.5 L (3.6-5.0) mmol/L Chloride 100.7 (98-107) mmol/L Carbon Dioxide 15 L (22-30) mmol/L Anion Gap 22 mmol/L BUN 4 L (7-17) mg/dL Creatinine 0.5 L (0.7-1.2) mg/dL Estimated GFR > 60 ml/min BUN/Creatinine Ratio 8 % Glucose 95 (65-100) mg/dL Uric Acid 7.2 (3.5-7.6) mg/dL Calcium 9.3 (8.4-10.2) mg/dL Total Bilirubin 0.70 (0.1-1.2) mg/dL AST 22 (5-40) units/L ALT 13 (7-56) units/L Alkaline Phosphatase 320 H (35-129) units/L Lactate Dehydrogenase 186 H (91-180) units/L Total Protein 7.9 (6.3-8.2) g/dL Albumin 3.5 L (3.9-5) g/dL Albumin/Globulin Ratio 0.8 % Urine Color (Yellow) Urine Turbidity (Clear) Urine pH (5.0-7.0) Ur Specific Woodman (1.003-1.030) Urine Protein (Negative) mg/dL Urine Glucose (UA) (Negative) mg/dL Urine Ketones (Negative) mg/dL Urine Blood (Negative) Urine Nitrite (Negative) Urine Bilirubin (Negative) Urine Ictotest (Negative) Urine Urobilinogen (<2.0) mg/dL Ur Leukocyte Esterase (Negative) Urine WBC (Auto) (0.0-6.0) /HPF Urine RBC (Auto) (0.0-6.0) /HPF U Epithel Cells (Auto) (0-13.0) /HPF Urine Mucus /HPF Urine Opiates Screen Urine Methadone Screen Ur Barbiturates Screen Ur Phencyclidine Scrn Ur Amphetamines Screen U Benzodiazepines Scrn Urine Cocaine Screen U Marijuana (THC) Screen Drugs of Abuse Note Influenza A (Rapid) Negative (Negative) Influenza B (Rapid) Negative (Negative) 10/03/19 10/03/19 Range/Units 16:22 16:22 WBC (4.5-11.0) K/mm3 RBC (3.65-5.03) M/mm3 Hgb (10.1-14.3) gm/dl Hct (30.3-42.9) % MCV (79-97) fl MCH (28-32) pg MCHC (30-34) % RDW (13.2-15.2) % Plt Count (140-440) K/mm3 Lymph % (Auto) (13.4-35.0) % [place] % (Auto) (0.0-7.3) % Eos % (Auto) (0.0-4.3) % Baso % (Auto) (0.0-1.8) % Lymph # (1.2-5.4) K/mm3 [place] # (0.0-0.8) K/mm3 Eos # (0.0-0.4) K/mm3 Baso # (0.0-0.1) K/mm3 Seg Neutrophils % (40.0-70.0) % Seg Neutrophils # (1.8-7.7) K/mm3 Sodium (137-145) mmol/L Potassium (3.6-5.0) mmol/L Chloride (98-107) mmol/L Carbon Dioxide (22-30) mmol/L Anion Gap mmol/L BUN (7-17) mg/dL Creatinine (0.7-1.2) mg/dL Estimated GFR ml/min BUN/Creatinine Ratio % Glucose (65-100) mg/dL Uric Acid (3.5-7.6) mg/dL Calcium (8.4-10.2) mg/dL Total Bilirubin (0.1-1.2) mg/dL AST (5-40) units/L ALT (7-56) units/L Alkaline Phosphatase (35-129) units/L Lactate Dehydrogenase (91-180) units/L Total Protein (6.3-8.2) g/dL Albumin (3.9-5) g/dL Albumin/Globulin Ratio % Urine Color Ankita (Yellow) Urine Turbidity Cloudy (Clear) Urine pH 5.0 (5.0-7.0) Ur Specific Woodman 1.031 H (1.003-1.030) Urine Protein 100 mg/dl (Negative) mg/dL Urine Glucose (UA) Neg (Negative) mg/dL Urine Ketones 80 (Negative) mg/dL Urine Blood Sm (Negative) Urine Nitrite Neg (Negative) Urine Bilirubin Mod (Negative) Urine Ictotest Positive (Negative) Urine Urobilinogen 4.0 (<2.0) mg/dL Ur Leukocyte Esterase Sm (Negative) Urine WBC (Auto) 47.0 H (0.0-6.0) /HPF Urine RBC (Auto) 7.0 (0.0-6.0) /HPF U Epithel Cells (Auto) 43.0 H (0-13.0) /HPF Urine Mucus 3+ /HPF Urine Opiates Screen Presumptive negative Urine Methadone Screen Presumptive negative Ur Barbiturates Screen Presumptive negative Ur Phencyclidine Scrn Presumptive negative Ur Amphetamines Screen Presumptive negative U Benzodiazepines Scrn Presumptive negative Urine Cocaine Screen Presumptive negative U Marijuana (THC) Screen Presumptive negative Drugs of Abuse Note Disclamer Influenza A (Rapid) (Negative) Influenza B (Rapid) (Negative) Critical care attestation.: If time is entered above; I have spent that time in minutes in the direct care of this critically ill patient, excluding procedure time. ED Disposition Clinical Impression: Ketonuria Acute gastritis Qualifiers: Gastritis type: superficial Gastritis bleeding: without bleeding Qualified Code(s): K29.00 - Acute gastritis without bleeding Disposition: DC- TO HOME OR SELFCARE Is pt being admited?: No Does the pt Need Aspirin: No Condition: Stable Instructions: Labor/ Labor Instructions, Dehydration (ED), Gastritis (ED) Additional Instructions: Patient encourage to follow up with provider with questions or concerns. Patient encourage to keep hydrated. Patient advice to take frequent rest periods. Referrals: NEAL DUFF MD [Primary Care Provider] - Forms: [facility] Discharge Summary Time of Disposition: 02:13 Print Language: KYRGYZ
[2019-10-03 23:28] LABS: Bacteria,Urine 1+ /HPF (Negative); Bilirubin,Urine NEG (Negative); Blood,Urine MOD (Negative); Color,Urine Amber (Yellow); Mucus,Urine 3+ /HPF
[2019-10-04] MEDS ORDERED: D5W/0.9% NACL 1,000 ML IV SCH
[2019-10-04 01:05] VITALS: BP 128/80
--- NOTE | 2019-10-05 07:06 | Event Note ---
Date: 10/03/19 Late entry triage note for 10/03/2019: 29 year old at 35 3/7 weeks gestation presents to triage with complaint of nausea, vomiting, abdominal cramps for a few days. Patient denies diarrhea. Patient denies fever, chills, malaise, respiratory symptoms, or body aches. Patient denies urinary symptoms. Patient reports active movement. She denies falls or abdominal trauma. She denies contractions. She denies leaking of water or vaginal bleeding. Patient states no family members or contacts have similar symptoms. Patient also reports vague chest pains and right leg pain for past day. Patient is well appearing, alert and oriented, NAD. Afebrile. Abdomen soft, nontender; fetus is noted to be moving actively. NST reactive. BPP 8/8; normal KAT; no sign of abruption on US. No regular contractions noted per EFM and none palpated. Patient was not seen to be vomiting while here in L&D triage; she was seen spitting into a bag several times; states she has had this spitting problem throughout her . Labs: platelet count normal, potassium 3.5, alk phos 320, LDH 186, AST 22, ALT 13, urine SG 1.031, 80 ketones, negative nitrite, 47 WBC/hpf on UA. Patient was hydrated in triage with 1 liter of LR; she did not require nausea medications as she states she no longer feels nauseated and her abdominal cramping is resolving. Urine was sent for culture. The following Rx were called to [facility] and left on voicemail and patient was instructed to pick them up and take them: Zofran 4 mg, #20, 1 po every 8 hours prn nausea and vomiting, 0 RF; Augmentin 500 mg, #14, 1 po BID, 0 RF; K-Dur 10 milliequivalent, #one, one po single dose, [address] Boucher re: this patient, her complaints, exam findings, and lab results. Dr. Boucher states OK to discharge patient to ED to be further evaluated (she complained of chest pain and leg pain). Instructed patient re: warning signs, bland diet, daily movement counting, signs of labor, need to follow up at [facility] this week. Instructed patient re: use of medications. Called ED and informed triage nurse re: patient's complaints and that patient is coming over via W/C. Patient was taken to ED in a wheel chair by RN.
== END 2019-10-04 02:39 | disposition home or self-care (01) ==
LOC: TRG 19:57 → ED 19:57 → TRG 19:57 → EDSTATUS 20:00 → TRG 10-04 01:12 → ED 10-04 02:39
DX: O99.613 Diseases of the digestive system complicating pregnancy, third trimester (principal); K92.89 Other specified diseases of the digestive system; Z3A.35 35 weeks gestation of pregnancy; K29.00 Acute gastritis without bleeding; R82.4 Acetonuria; Z79.899 Other long term (current) drug therapy
CPT/HCPCS: 36415; 76705; 76815; 76819; 80053; 80307; 81001; 83615; 84550; 85025; 87086; 87400; 96361; 96374; 96375; 99284; J2765; J7042; J7120

== ENCOUNTER 2019-10-23 01:15 | Observation (INO) | payer OTHER ==
[2019-10-23] MEDS ORDERED: ACETAMINOPHEN 325 MG TAB PO ONE (03:10)
[2019-10-23 08:53] VITALS: BP 117/58
--- NOTE | 2019-10-23 10:16 | History and Physical Report ---
History of Present Illness Date of examination: 10/23/19 Date of admission: 10/23/19 03:09 Chief complaint: Leaking fluid History of present illness: 29 yo G 7 P 2 0 4 2 at 38 weeks 2 days admitted for 23hr OBS yesterday secondary to patient c/o leaking fluid. Nitrazine test was neg and patient was 3 cm dilated. She reports +FMs but denies VB or LOF. She is a [facility] patient who initiated care in her second trimester. Her course was complicated by PTL (steroids given 09/02), Vit D deficiency (was supplemented) and positive anti-leanne antibody. LABS: O pos, Antibody Screen positive, pap smear normal, RI, VDRL NR, HBsAg neg, HIV neg, GC/CT on 06/15 neg, GBS unknown (last visit at the office was 09/14/19 @ 32w5d). Past History Past Medical History: other (Vitamin D deficiency) Past Surgical History: other (Colposcopy) [employer]ATION ENGINEER History: trichomonas Family/Genetic History: none Social history: single, lives with family, full code. denies: smoking, alcohol abuse, prescription drug abuse, IV drug use - Obstetrical History Expected Date of Delivery: 11/04/19 Actual Gestation: 38 Week(s) 2 Day(s) : 7 Para: 2 Hx # Term Pregnancies: 2 Number of Pregnancies: 0 Spontaneous Abortions: 1 Induced : 3 Number of Living Children: 2 #1 Gender: Male year: 2,[birth year] (10/31/2014) Method of Delivery: Vaginal Gestational age at delivery: 39 Complications: none #2 Gender: Male year: 2,014 (09/12/2014) Method of Delivery: Vaginal Gestational age at delivery: 37 Medications and Allergies Allergies Allergy/AdvReac Type Severity Reaction Status Date / Time No Known Allergies Allergy Verified 10/03/19 14:50 Home Medications Medication Instructions Recorded Confirmed Last Taken Type Vit No.126/Iron/Folic 1 tab PO QDAY 09/12/14 10/23/19 09/10/14 08:00 History [Classic Tablet] one Famotidine [Pepcid] 40 mg PO QHS #10 tablet 10/04/19 10/23/19 Unknown Rx Metoclopramide [Reglan] 10 mg PO TID PRN #12 tab 10/04/19 10/23/19 Unknown Rx Review of Systems All systems: negative - Vital Signs Vital signs: Vital Signs Temp Resp 98.2 F 18 10/23/19 01:34 10/23/19 01:34 Temp Pulse Resp BP Pulse Ox 98.2 F 78 18 117/58 10/23/19 01:34 10/23/19 08:52 10/23/19 03:53 10/23/19 08:52 - Obstetrical FHR: auscultation normal, category 1 FHR comments: baseline 130, moderate variability, 15x15 accels, no decels Cervical Dilatation: 3.5 Cervical Effacement Percentage: 50 station: -3 Uterine Contraction Pattern: Absent Results All other labs normal. Assessment and Plan - Patient Problems (1) 38 weeks gestation of Current Visit: Yes Status: Acute Plan to address problem: Continue current management Ultrasound ordered for KAT check If SROM confirmed, will start IOL, if not, patient will be discharged to home to f/u at the clinic (2) Insufficient care in third trimester Current Visit: Yes Status: Acute
--- NOTE | 2019-10-23 12:04 | Ultrasound Report ---
ULTRASOUND OB LIMITED / US OB limited INDICATION: Leaking fluid, Neg Nitrazine Test,38 wks Gestation. well-being. Clinical age 38 we eks and 2 days with EDC of 11/04/2019 . TECHNIQUE: Transabdominal ultrasound imaging. COMPARISON: 10/03/2019 FINDINGS/IMPRESSION: Single, live intrauterine gestation with heart rate of 130 bpm, currently in a cephalic lie. Amniotic fluid index is 10.1 cm. Thank you for the opportunity to participate in this patient's care. Signer Name: Elisabeth Carbajal Signed: 10/23/2019 12:00 PM Workstation Name: [id number]
--- NOTE | 2019-10-23 13:12 | Discharge Summary ---
Providers - Providers Date of Admission: 10/23/19 03:09 Date of discharge: 10/23/19 Attending physician: OVI PERDOMO Primary care physician: OVI PERDOMO Hospitalization Reason for admission: IUP at term, other (leaking fluid) Discharge diagnosis: other (IUP at term undelivered) Hospital course: Uncomplicated. KAT 10.1cm. SROM ruled out Condition at discharge: Stable Disposition: DC-01 TO HOME OR SELFCARE - Discharge Diagnoses (1) 38 weeks gestation of Status: Acute (2) Insufficient care in third trimester Status: Acute Plan - Provider Discharge Summary Activity: routine Diet: routine Additional instructions: [] Smoking cessation referral if applicable(refer to patient education folder for contact #) [] Refer to [facility] Booklet Call your doctor immediately for: * Fever > 100.5 * Heavy vaginal bleeding ( >1 pad per hour) * Severe persistent headache * Shortness of breath * Reddened, hot, painful area to leg or breast * Drainage or odor from incision. * Keep incision clean and dry at all times and follow doctor's instructions regarding bathing/showering - Follow up plan Follow up: OVI PERDOMO MD [Primary Care Provider] - 3 Days (Follow up at the hospital if still leaking fluid or at [facility] on 10/26/19 for routine OB visit)
== END 2019-10-23 13:45 | disposition home or self-care (01) ==
LOC: TRG 01:15 → LD 03:09 → TRG 03:09
PROVIDERS: ADMIT Obstetrics & Gynecology; ATTEND Obstetrics & Gynecology
DX: O42.913 Preterm premature rupture of membranes, unspecified as to length of time between rupture and onset of labor, third trimester (principal); Z3A.38 38 weeks gestation of pregnancy
CPT/HCPCS: 76815; G0378